=== PATIENT | female | born 1945 ===

== ENCOUNTER 2021-04-03 09:16 | Inpatient (IN) | payer OTHER ==
[~2021-04-03] VITALS: Ht 157.5 cm; Wt 75.3 kg
[~2021-04-03 09:16] MED LIST: CILOSTAZOL100 MG PO; CLONAZEPAM0.5 MG PO; GLIPIZIDE XL10 MG PO; HCTZ PO; HUMULIN 70100 UNIT/1; SERTRALINE HCL100 MG PO; TOPROL XL25 M1 PO
[2021-04-03] MEDS ORDERED: HYDROCHLOROTH12.5 MG (09:43)
[2021-04-09] MEDS ORDERED: HYOSCYAMINE0.125 M1 SL (16:50)
[2021-04-09] MEDS ORDERED: OXYC1TAB9 PO (16:51)
== END 2021-04-09 17:15 | disposition home or self-care (01) | DRG 803 ==
LOC: ER 09:16 → SURH 12:24
PROVIDERS: ADMIT Colon & Rectal Surgery; ATTEND Colon & Rectal Surgery
PROC: 30233N1 Transfusion of Nonautologous Red Blood Cells into Peripheral Vein, Percutaneous Approach (ICD-10-PCS; principal; 2021-04-03)
PROC: 0DBK4ZZ Excision of Ascending Colon, Percutaneous Endoscopic Approach (ICD-10-PCS; 2021-04-06)
PROC: 07BC4ZX Excision of Pelvis Lymphatic, Percutaneous Endoscopic Approach, Diagnostic (ICD-10-PCS; 2021-04-06)
DX: D64.9 Anemia, unspecified (principal); C18.3 Malignant neoplasm of hepatic flexure; I11.9 Hypertensive heart disease without heart failure; E11.40 Type 2 diabetes mellitus with diabetic neuropathy, unspecified; E11.9 Type 2 diabetes mellitus without complications; E78.00 Pure hypercholesterolemia, unspecified; F32.A Depression, unspecified; F41.0 Panic disorder [episodic paroxysmal anxiety]; I73.9 Peripheral vascular disease, unspecified; Z20.822 Contact with and (suspected) exposure to COVID-19